=== PATIENT | female | born 1995 | race Caucasian/White ===

== ENCOUNTER 2017-03-30 18:20 | Emergency (ER) | payer MEDICAID ==
[2017-03-30] MEDS: LIDOCAINE 1% (MDV) 20 ML INJ SC (20:03)
== END 2017-03-30 20:58 | disposition home or self-care (01) ==
LOC: FTE 18:20
DX: N76.4 Abscess of vulva (principal)
CPT/HCPCS: 56405; 99284-25

== ENCOUNTER 2017-10-14 02:32 | Emergency (ER) | payer MEDICAID ==
[2017-10-14 04:08] LABS: ADD MAN DIFF? NO
[2017-10-14 04:13] LABS: URINE PH (Dip) POC 5.5 (5.0-8.5)
[2017-10-14 04:13] LABS: WHITE BLOOD COUNT 10.2 10^3/ul (4.8-10.8)
[2017-10-14 04:13] LABS: BASOPHILS % 0.3 % (0.0-2.0); EOSINOPHILS % 0.3 % (0.0-7.0); HEMATOCRIT 41.4 % (37.0-47.0); HEMOGLOBIN 14.5 g/dl (12.0-16.0); IMMATURE GRANS #M 0.03 10^3/ul; IMMATURE GRANS % (M) 0.3 %; LYMPHOCYTES # 1.3 10^3/ul (0.8-2.9); LYMPHOCYTES % 12.7 % (15.0-51.0); MEAN CORPUSCULAR HEMOGLOBIN 32.2 pg (29.0-33.0); MEAN CORPUSCULAR VOLUME 91.8 fl (82.0-101.0); MEAN PLATELET VOLUME 10.3 fl (7.4-10.4); MONOCYTE # 0.7 10^3/ul (0.3-0.9); MONOCYTES % 6.5 % (0.0-11.0); NEUTROPHIL # 8.1 10^3/ul (1.6-7.5); NEUTROPHILS % 79.9 % (39.0-77.0); PLATELET COUNT 276 10^3/UL (140-415); RED BLOOD COUNT 4.51 10^6/ul (4.20-5.40); RED CELL DISTRIBUTION WIDTH 12.3 % (11.5-14.5); URINE BLOOD (Dip) POC Negative (NEGATIVE); URINE GLUCOSE (Dip) POC Negative (NEGATIVE); URINE KETONES (Dip) POC Negative (NEGATIVE); URINE LEUKOCYTE EST (Dip) POC 1+ (NEGATIVE); URINE NITRITE (Dip) POC Negative (NEGATIVE); URINE TOTAL PROTEIN POC Negative (NEGATIVE)
[2017-10-14 04:30] LABS: ALANINE AMINOTRANSFERASE 43 IU/L (13-69); ALBUMIN 4.5 g/dl (3.3-4.9); ALBUMIN/GLOBULIN RATIO 1.12; ALKALINE PHOSPHATASE 117 IU/L (42-121); ANION GAP 16 (8-16); ASPARTATE AMINO TRANSFERASE 110 IU/L (15-46); BILIRUBIN,INDIRECT 0.5 mg/dl (0-1.1); BILIRUBIN,TOTAL 0.5 mg/dl (0.2-1.3); BLOOD UREA NITROGEN 12 mg/dl (7-20); CALCIUM 10.1 mg/dl (8.4-10.2); CARBON DIOXIDE 24 mmol/L (21-31); CHLORIDE 113 mmol/L (97-110); CREATININE 0.79 mg/dl (0.44-1.00); GLUCOSE 108 mg/dl (70-220); LIPASE 84 U/L (23-300); SODIUM 149 mmol/L (135-144); TOTAL PROTEIN 8.5 g/dl (6.1-8.1)
== END 2017-10-14 05:37 | disposition home or self-care (01) ==
LOC: E/R 02:32
DX: K80.50 Calculus of bile duct without cholangitis or cholecystitis without obstruction (principal); N39.0 Urinary tract infection, site not specified; E23.2 Diabetes insipidus
CPT/HCPCS: 36415; 76705; 80053; 81003; 81025; 83690; 85025; 99284-25

== ENCOUNTER 2018-03-11 10:11 | Emergency (ER) | payer MEDICAID ==
[2018-03-11] MEDS: HYDROCODONE/APAP (5/325) TAB PO (11:25)
[2018-03-11] MEDS: DIPHTH/TET/ACEL PERTUSS (ADULT) 0.5 ML VIAL IM* (15:44)
[2018-03-11] MEDS: LIDOCAINE 2%/EPI MPF (SDV) 20 ML VIAL INJ (15:44)
== END 2018-03-11 16:12 | disposition home or self-care (01) ==
LOC: FTE 10:11
DX: N61.1 Abscess of the breast and nipple (principal); Z23 Encounter for immunization
CPT/HCPCS: 10060; 76642; 90471; 90715; 99284-25

== ENCOUNTER 2018-03-17 04:30 | Emergency (ER) | payer MEDICAID ==
[2018-03-17] MEDS: FAMOTIDINE 20 MG TAB PO (06:35)
[2018-03-17] MEDS: ACETAMINOPHEN 325 MG TAB PO (06:35)
[2018-03-17 06:46] LABS: ADD MAN DIFF? NO
[2018-03-17 06:48] LABS: BASOPHILS % 0.2 % (0.0-2.0); EOSINOPHILS # 0.1 10^3/ul (0.0-0.5); EOSINOPHILS % 2.1 % (0.0-7.0); HEMATOCRIT 40.3 % (37.0-47.0); HEMOGLOBIN 13.6 g/dl (12.0-16.0); LYMPHOCYTES # 1.1 10^3/ul (0.8-2.9); LYMPHOCYTES % 18.8 % (15.0-51.0); MEAN CORPUSCULAR HEMOGLOBIN 31.3 pg (29.0-33.0); MEAN CORPUSCULAR HGB CONC 33.7 g/dl (32.0-37.0); MEAN CORPUSCULAR VOLUME 92.6 fl (82.0-101.0); MEAN PLATELET VOLUME 9.6 fl (7.4-10.4); MONOCYTE # 0.4 10^3/ul (0.3-0.9); MONOCYTES % 6.4 % (0.0-11.0); NEUTROPHIL # 4.4 10^3/ul (1.6-7.5); NEUTROPHILS % 72.3 % (39.0-77.0); PLATELET COUNT 308 10^3/UL (140-415); RED BLOOD COUNT 4.35 10^6/ul (4.20-5.40); RED CELL DISTRIBUTION WIDTH 12.4 % (11.5-14.5)
[2018-03-17 06:48] LABS: WHITE BLOOD COUNT 6.1 10^3/ul (4.8-10.8)
[2018-03-17 07:11] LABS: ALANINE AMINOTRANSFERASE 557 IU/L (13-69); ALBUMIN 4.6 g/dl (3.3-4.9); ALBUMIN/GLOBULIN RATIO 1.17; ALKALINE PHOSPHATASE 282 IU/L (42-121); ANION GAP 8 (5-13); ASPARTATE AMINO TRANSFERASE 697 IU/L (15-46); BILIRUBIN,INDIRECT 0.8 mg/dl (0-1.1); BILIRUBIN,TOTAL 2.8 mg/dl (0.2-1.3); BLOOD UREA NITROGEN 10 mg/dl (7-20); CALCIUM 9.6 mg/dl (8.4-10.2); CARBON DIOXIDE 26 mmol/L (21-31); CHLORIDE 107 mmol/L (97-110); CREATININE 0.74 mg/dl (0.44-1.00); Estimated GFR > 60 mL/min (>60); GLUCOSE 101 mg/dl (70-220); LIPASE 93 U/L (23-300); POTASSIUM 4.2 mmol/L (3.5-5.1); SODIUM 141 mmol/L (135-144); TOTAL PROTEIN 8.5 g/dl (6.1-8.1)
[2018-03-17 07:15] LABS: URINE BLOOD (Dip) POC 3+ (NEGATIVE); URINE GLUCOSE (Dip) POC Negative (NEGATIVE); URINE KETONES (Dip) POC Trace (NEGATIVE); URINE LEUKOCYTE EST (Dip) POC Trace (NEGATIVE); URINE NITRITE (Dip) POC Positive (NEGATIVE); URINE TOTAL PROTEIN POC 2+ (NEGATIVE)
== END 2018-03-17 08:04 | disposition home or self-care (01) ==
LOC: FTE 04:30
DX: N39.0 Urinary tract infection, site not specified (principal); R74.0 Nonspecific elevation of levels of transaminase and lactic acid dehydrogenase [LDH]; K80.20 Calculus of gallbladder without cholecystitis without obstruction
CPT/HCPCS: 36415; 76705; 80053; 81003; 81025; 83690; 85025; 99284-25

== ENCOUNTER 2018-03-19 04:57 | Emergency (ER) | payer MEDICAID ==
[2018-03-19 06:56] LABS: ADD MAN DIFF? NO
[2018-03-19 06:57] LABS: WHITE BLOOD COUNT 4.9 10^3/ul (4.8-10.8)
[2018-03-19 06:57] LABS: BASOPHILS % 0.4 % (0.0-2.0); EOSINOPHILS # 0.2 10^3/ul (0.0-0.5); HEMATOCRIT 38.8 % (37.0-47.0); LYMPHOCYTES # 2.2 10^3/ul (0.8-2.9); LYMPHOCYTES % 45.2 % (15.0-51.0); MEAN CORPUSCULAR HEMOGLOBIN 31.6 pg (29.0-33.0); MEAN CORPUSCULAR HGB CONC 33.5 g/dl (32.0-37.0); MEAN CORPUSCULAR VOLUME 94.4 fl (82.0-101.0); MONOCYTE # 0.5 10^3/ul (0.3-0.9); MONOCYTES % 9.5 % (0.0-11.0); NEUTROPHILS % 41.5 % (39.0-77.0); PLATELET COUNT 281 10^3/UL (140-415); RED BLOOD COUNT 4.11 10^6/ul (4.20-5.40); RED CELL DISTRIBUTION WIDTH 12.6 % (11.5-14.5)
[2018-03-19 07:00] LABS: ADD UMIC NO; UR ASCORBIC ACID NEGATIVE (NEGATIVE); UR BILIRUBIN (Dip) NEGATIVE (NEGATIVE); UR BLOOD (Dip) NEGATIVE (NEGATIVE); UR CLARITY CLEAR (CLEAR); UR COLOR YELLOW (YELLOW); UR GLUCOSE (Dip) NEGATIVE (NEGATIVE); UR KETONES (Dip) NEGATIVE (NEGATIVE); UR LEUKOCYTE ESTERASE (Dip) NEGATIVE Leu/ul (NEGATIVE); UR NITRITE (Dip) NEGATIVE (NEGATIVE); UR TOTAL PROTEIN (Dip) NEGATIVE (NEGATIVE); UR UROBILINOGEN (Dip) NEGATIVE (NEGATIVE)
[2018-03-19 07:21] LABS: ALANINE AMINOTRANSFERASE 333 IU/L (13-69); ALBUMIN 4.3 g/dl (3.3-4.9); ALBUMIN/GLOBULIN RATIO 1.16; ALKALINE PHOSPHATASE 246 IU/L (42-121); ANION GAP 10 (5-13); ASPARTATE AMINO TRANSFERASE 149 IU/L (15-46); BILIRUBIN,INDIRECT 0.3 mg/dl (0-1.1); BILIRUBIN,TOTAL 0.3 mg/dl (0.2-1.3); BLOOD UREA NITROGEN 9 mg/dl (7-20); CALCIUM 9.2 mg/dl (8.4-10.2); CARBON DIOXIDE 24 mmol/L (21-31); CHLORIDE 109 mmol/L (97-110); Estimated GFR > 60 mL/min (>60); GLUCOSE 94 mg/dl (70-220); LIPASE 130 U/L (23-300); POTASSIUM 4.1 mmol/L (3.5-5.1); SODIUM 143 mmol/L (135-144)
== END 2018-03-19 07:40 | disposition home or self-care (01) ==
LOC: FTE 04:57
DX: Z00.00 Encounter for general adult medical examination without abnormal findings (principal); R10.9 Unspecified abdominal pain
CPT/HCPCS: 36415; 76705; 80053; 81003; 81025; 83690; 85025; 99284-25